=== PATIENT | male | born 1950 | race Caucasian/White ===

== ENCOUNTER 2017-12-24 07:36 | Day surgery (SDC) | payer MEDICARE, OTHER ==
[2017-12-24] MEDS ORDERED: LIDOCAINE 1% (MDV) 20 ML INJ (10:15)
[2017-12-24] MEDS ORDERED: IODIXANOL LOCM 100 ML BTL (10:15)
[2017-12-24] MEDS ORDERED: FENTAnyl 50 MCG/ML VIAL (10:34)
[2017-12-24] MEDS ORDERED: MIDAZOLAM 1 MG/ML 2 ML INJ (10:34)
[2017-12-24] MEDS ORDERED: HEPARIN 1000 UNITS/ML 10 ML INJ (11:16)
[2017-12-24] MEDS ORDERED: IODIXANOL LOCM 50 ML BTL (11:19)
[2017-12-24] MEDS ORDERED: NITROGLYCERIN (IC) 100 MCG/ML INJ (11:56)
== END 2017-12-24 19:50 ==
LOC: SDS 07:36
DX: I73.9 Peripheral vascular disease, unspecified (principal); E11.42 Type 2 diabetes mellitus with diabetic polyneuropathy; G20 Parkinson's disease
CPT/HCPCS: 37225; 82962; 93005

== ENCOUNTER → 2018-02-08 | Outpatient (CLI) | payer MEDICARE, OTHER ==
[2018-02-08] MEDS: IODIXANOL LOCM 50 ML BTL (09:41)
[2018-02-08] MEDS: SOD CHLORIDE 0.9% 100 ML (09:41)
[2018-02-08] MEDS: IODIXANOL LOCM 100 ML BTL (09:41)
== END | disposition home or self-care (01) ==
LOC: C/S 08:10
DX: I73.9 Peripheral vascular disease, unspecified (principal)
CPT/HCPCS: 75635

== ENCOUNTER 2018-07-02 09:47 | Day surgery (SDC) | payer MEDICARE, OTHER ==
[2018-07-02 11:43] LABS: INR 0.99; PROTIME 13.2 Sec (11.9-14.9)
[2018-07-02 11:44] LABS: PARTIAL THROMBOPLASTIN TIME 31.1 Sec (23.0-35.0)
[2018-07-02] MEDS ORDERED: IODIXANOL LOCM 100 ML BTL (12:44)
[2018-07-02] MEDS ORDERED: LIDOCAINE 1% (MDV) 20 ML INJ (12:44)
[2018-07-02] MEDS ORDERED: FENTAnyl 50 MCG/ML VIAL (12:45)
[2018-07-02] MEDS ORDERED: MIDAZOLAM 1 MG/ML 2 ML INJ (12:45)
[2018-07-02] MEDS ORDERED: HEPARIN 1000 UNITS/ML 10 ML INJ (14:36)
[2018-07-02] MEDS: SOD CHLORIDE 0.9% 1,000 ML IV (15:27)
[2018-07-02] MEDS ORDERED: METOPROLOL 5 MG INJ IV (15:30)
== END 2018-07-02 23:17 ==
LOC: SDS 09:47
DX: I73.9 Peripheral vascular disease, unspecified (principal); L97.529 Non-pressure chronic ulcer of other part of left foot with unspecified severity; E11.9 Type 2 diabetes mellitus without complications
CPT/HCPCS: 37224; 71045; 75630; 75710; 76937; 82962; 85610; 85730; 93005